=== PATIENT | male | born 1975 | race Caucasian/White ===

== ENCOUNTER 2018-04-23 13:27 | Emergency (ER) | payer MEDICAID ==
[2018-04-23 13:35] VITALS: RESP 16
[2018-04-23] MEDS ORDERED: Sodium Chloride 0.9% 1,000 ML IV STA (13:43)
[2018-04-23] MEDS ORDERED: levETIRAcetam 1,000 MG in Sodium Chloride 0.9% 100 ML IVPB ONE (13:43)
--- NOTE | 2018-04-23 14:33 | ED PDOC ---
HPI: Seizure Time Seen by Provider: 04/23/18 13:38 Chief Complaint (Nursing): Headache Chief Complaint (Provider): Seizure History Per: Patient History/Exam Limitations: no limitations Recent Seizure Activity Began: Days Ago: (1) Additional Complaint(s): 43 year old ambulatory male presents to the ED for an evaluation of seizure yesterday. Patient states he fell and hit the right side of his head and bit the right side of the tongue. He has a history of seizure disorder and patient is non-compliant with his medication since one month after he came from [place]. He does not know the etiology of the seizure or medication. Otherwise, he denies, chest pain, abdominal pain or cough. PMD: no family provider Past Medical History Reviewed: Historical Data, Nursing Documentation, Vital Signs Vital Signs: Last Vital Signs Temp 97.1 F L 04/23/18 13:31 Pulse 83 04/23/18 13:31 Resp 16 04/23/18 13:31 BP 133/92 H 04/23/18 13:31 Pulse Ox 97 04/23/18 13:31 - Medical History PMH: Seizures - Family History Family History: States: Unknown Family Hx - Home Medications Home Medications: Ambulatory Orders Medication Instructions Recorded Levetiracetam [Keppra] 500 mg PO BID #60 tablet 04/23/18 - Allergies Allergies/Adverse Reactions: Allergies Allergy/AdvReac Type Severity Reaction Status Date / Time No Known Allergies Allergy Verified 04/23/18 13:31 Review of Systems ROS Statement: Except As Marked, All Systems Reviewed And Found Negative Constitutional: Negative for: Fever, Chills Cardiovascular: Negative for: Chest Pain Respiratory: Negative for: Shortness of Breath Neurological: Positive for: Seizures Physical Exam - Reviewed Nursing Documentation Reviewed: Yes Vital Signs Reviewed: Yes - Physical Exam Appears: Positive for: Non-toxic, No Acute Distress Head Exam: Negative for: NORMAL INSPECTION (abrasion to right temporal area with no palpable fracture) Skin: Positive for: Normal Color, Warm, Dry. Negative for: Rash Eye Exam: Positive for: EOMI, Normal appearance, PERRL ENT: Negative for: Normal ENT Inspection (bite mei on tongue with no abrasions ) Neck: Positive for: Normal, Painless ROM, Supple. Negative for: Decreased ROM Cardiovascular/Chest: Positive for: Regular Rate, Rhythm. Negative for: Murmur Respiratory: Positive for: Normal Breath Sounds. Negative for: Decreased Breath Sounds, Respiratory Distress Back: Positive for: Normal Inspection. Negative for: L CVA Tenderness, R CVA T enderness Extremity: Positive for: Normal ROM. Negative for: Tenderness, Pedal Edema, Deformity Neurologic/Psych: Positive for: Alert, Oriented (x3). Negative for: Motor/Sensory Deficits - Laboratory Results Result Diagrams: 04/23/18 14:22 04/23/18 14:22 - ECG ECG: Positive for: Interpreted By Me, Viewed By Me ECG Rhythm: Positive for: Sinus Rhythm. Negative for: ST/T Changes Rate: 70 O2 Sat by Pulse Oximetry: 97 (RA) Pulse Ox Interpretation: Normal Medical Decision Making Medical Decision Making: Time: 1343 Impression: Seizures disorder r/o brain tumor. Patient is non compliant with medication. Will obtain electrolytes, give IV fluids, obtain CT head and load 1 gm Keppra Plan: --Head w/o contrast CT --EKG --Alcohol serum --CMP --Drug screen, urine --CBC w/ Differential --Keppra 1000 mg --Normal Saline 100 mls/hr --Reevaluation 1544 CT Head FINDINGS: HEMORRHAGE: No intracranial hemorrhage. BRAIN: Scattered calcifications are identified of variable size throughout the cerebrum with the largest identified at the left frontal lobe measuring 1.7 x 1.5 cm sparing the brainstem and right cerebellum. A solitary calcification is imbedded in the medial left cerebellar hemisphere. The pattern likely reflects post infectious or post inflammatory change from a very young age. Scattered cerebral white matter lucency is also appreciated primarily in the subcortical and centrum semiovale/optic radiation distribution bilaterally. This may be related to the same process. There is no mass effect. There is a broad differential diagnosis for white-matter lucency unrelated to prior infectious or inflammatory change however. Clinically correlate further. No suspicious extra-axial collections identified and there is no mass effect throughout. VENTRICLES: Unremarkable. No hydrocephalus. CALVARIUM: Unremarkable. PARANASAL SINUSES: Unremarkable as visualized. No significant inflammatory changes. MASTOID AIR CELLS: Unremarkable as visualized. No inflammatory changes. OTHER FINDINGS: None. IMPRESSION: Multifocal parenchymal calcifications and white-matter lucency is appreciated throughout the cerebrum and left cerebellum potentially reflecting postinfectious or postinflammatory related sequelae. No acute intracranial hemorrhage or mass effect at this time. No suspicious extra-axial collection evident. Further clinical correlation is advised. There is a broad differential diagnosis for white-matter lucency if white matter changes are not related to prior infectious or inflammatory cause. Scribe Attestation: Documented by Sanjeev Oakley, acting as a scribe for Colin Sherwood MD. Provider Scribe Attestation: All medical record entries made by the Scribe were at my direction and pe rsonally dictated by me. I have reviewed the chart and agree that the record accurately reflects my personal performance of the history, physical exam, medical decision making, and the department course for this patient. I have also personally directed, reviewed, and agree with the discharge instructions and disposition. Disposition - Clinical Impression Clinical Impression: Seizure disorder - Patient ED Disposition Is Patient to be Admitted: No - Disposition Referrals: Jeana Smith MD [Medical Doctor] - Disposition: Routine/Home Disposition Time: 17:38 Condition: FAIR Prescriptions: Levetiracetam [Keppra] 500 mg PO BID #60 tablet Instructions: Seizures, Adult (DC) Forms: [employer] (Lithuanian)
[2018-04-23 14:44] LABS: BASO % 0.9 % (0.0-2.0); EOS # 0.3 K/uL (0.0-0.7); EOS % 8.1 % (0.0-4.0); HEMOGLOBIN 13.5 g/dL (12.0-18.0); LYMPH # 1.4 K/uL (1.0-4.3); LYMPH % 44.3 % (20.0-40.0); MEAN CELL VOLUME 95.2 fl (80.0-94.0); MEAN CORPUSCULAR HEMOGLOBIN 31.9 pg (27.0-31.0); MEAN CORPUSCULAR HGB CONC 33.5 g/dL (33.0-37.0); MEAN PLATELET VOLUME 10.2 fl (7.2-11.7); MONO # 0.4 K/uL (0.0-0.8); MONO % 12.8 % (0.0-10.0); NEUT # 1.1 K/uL (1.8-7.0); NEUT % 33.9 % (50.0-75.0); NRBC % 0.3 % (0.0-0.0); RBC 4.24 Mil/uL (4.40-5.90); RED CELL DISTRIBUTION WIDTH 13.3 % (11.5-14.5); WHITE BLOOD COUNT 3.2 K/uL (4.8-10.8)
[2018-04-23 14:53] LABS: ALB/GLOB RATIO 0.9 (1.0-2.1); ALT/SGPT 66 U/L (21-72); AST/SGOT 99 U/L (17-59); BLOOD UREA NITROGEN 17 mg/dl (9-20); CALCIUM 8.5 mg/dL (8.4-10.2); GFR NON-AFRICAN AMERICAN > 60
--- NOTE | 2018-04-23 15:47 | CT ---
Date of service: 04/23/2018 PROCEDURE: CT HEAD WITHOUT CONTRAST. HISTORY: r/o bleed COMPARISON: None available. TECHNIQUE: Axial computed tomography images were obtained through the head/brain without intravenous contrast. Radiation dose: Total exam DLP = 1240.59 mGy-cm. This CT exam was performed using one or more of the following dose reduction techniques: Automated exposure control, adjustment of the mA and/or kV according to patient size, and/or use of iterative reconstruction technique. FINDINGS: HEMORRHAGE: No intracranial hemorrhage. BRAIN: Scattered calcifications are identified of variable size throughout the cerebrum with the largest identified at the left frontal lobe measuring 1.7 x 1.5 cm sparing the brainstem and right cerebellum. A solitary calcification is imbedded in the medial left cerebellar hemisphere. The pattern likely reflects post infectious or post inflammatory change from a very young age. Scattered cerebral white matter lucency is also appreciated primarily in the subcortical and centrum semiovale/optic radiation distribution bilaterally. This may be related to the same process. There is no mass effect. There is a broad differential diagnosis for white-matter lucency unrelated to prior infectious or inflammatory change however. Clinically correlate further. No suspicious extra-axial collections identified and there is no mass effect throughout. VENTRICLES: Unremarkable. No hydrocephalus. CALVARIUM: Unremarkable. PARANASAL SINUSES: Unremarkable as visualized. No significant inflammatory changes. MASTOID AIR CELLS: Unremarkable as visualized. No inflammatory changes. OTHER FINDINGS: None. IMPRESSION: Multifocal parenchymal calcifications and white-matter lucency is appreciated throughout the cerebrum and left cerebellum potentially reflecting postinfectious or postinflammatory related sequelae. No acute intracranial hemorrhage or mass effect at this time. No suspicious extra-axial collection evident. Further clinical correlation is advised. There is a broad differential diagnosis for white-matter lucency if white matter changes are not related to prior infectious or inflammatory cause.
[2018-04-23 16:51] LABS: BARBITURATES, UR NEGATIVE (NEGATIVE); BENZODIAZEPINES, UR NEGATIVE (NEGATIVE); OPIATES, UR NEGATIVE (NEGATIVE); PHENCYCLIDINE, UR NEGATIVE (NEGATIVE)
[2018-04-23] MEDS ORDERED: Divalproex 500 mg DR(BID formulation) PO STA (17:47)
[2018-04-23 18:44] VITALS: BP 138/96; PULSE 65; TEMP 98; O2SAT 98
--- NOTE | 2018-04-23 20:24 | CARD ---
APPROVED REPORT Date of service: 04/23/2018 EKG Measurement Heart [id number] <Conclusion> Normal sinus rhythm Possible Left atrial enlargement Septal infarct, age undetermined Abnormal ECG
== END 2018-04-23 19:07 | disposition home or self-care (01) ==
LOC: H.ER 13:27
DX: G40.909 Epilepsy, unspecified, not intractable, without status epilepticus (principal); Z79.899 Other long term (current) drug therapy; Z91.14 Patient's other noncompliance with medication regimen
CPT/HCPCS: 70450; 80053; 85025; 93005; 96360; 96361; 99285; G0480; J1953; J7030